=== PATIENT | female | born 1945 | race Caucasian/White ===

== ENCOUNTER → 2024-06-04 | Outpatient (CLI) | payer MEDICARE, BC, SELFPAY ==
--- NOTE | 2024-06-04 14:00 | XR_ITS ---
Examination: Breast ultrasound, unilateral, right complete Date and time of exam: June 04, 2024 1408 hours INDICATIONS: Bilateral breast sonography December 08, 2023 8:00 oval mass 6 mm right breast Technique: Real-time meek scale ultrasonographic imaging performed right breast including all 4 quadrants as well as nipple retroareolar and axillary region. Findings: 8:00 nodule circumscribed 6 x 3 x 5 mm IMPRESSION: BI-RADS Category 2: Benign findings
== END | disposition home or self-care (01) ==
LOC: CDIM 13:46
PROVIDERS: PCP Family Medicine; Referring Provider Internal Medicine Hematology & Oncology; Visit Provider Internal Medicine Hematology & Oncology
DX: N63.13 Unspecified lump in the right breast, lower outer quadrant (principal); C50.112 Malignant neoplasm of central portion of left female breast
CPT/HCPCS: 76641

== ENCOUNTER → 2024-12-06 | Outpatient (CLI) | payer MEDICARE, BC, SELFPAY ==
--- NOTE | 2024-12-06 08:45 | XR_ITS ---
Examination: Screening digital mammography, bilateral Computer aided detection 3-D breast Tomosynthesis, bilateral Date and time of exam: December 06, 2024 0824 hours Compared to mammograms dating to 2015 Indication: Screening Technique: Nonmagnified MLO, CC views of the breasts to been obtained, reconstructed from 3-D Tomosynthesis images. R2 computer aided detection program utilized for evaluation of suspicious masses and/or abnormal calcifications. 3-D Tomosynthesis images obtained. Findings: Scattered areas of fibroglandular density. 3 mm nodule lobular margins upper outer right breast Stable scar formation left breast consistent with patient's history treated left breast cancer Impression: BI-RADS Category 0: Incomplete: Need additional imaging evaluation Recommend follow-up spot tomographic views of 3 mm nodule upper outer right breast as well as right breast sonography to complete the workup.
[2024-12-06 09:15] LABS: Basophils # (Auto) 0.1 Thou/mm3 (0.0-0.2); Basophils % (Auto) 1 % (0-2.5); Eosinophils # (Auto) 0.2 Thou/mm3 (0.0-0.5); Eosinophils % (Auto) 4 % (0-10); Hematocrit 44.8 % (36.0-46.0); Hemoglobin 14.2 g/dL (12.0-16.0); Immature Granulocytes % (Auto) 0 % (0-0); Immature Granulocytes Auto 0.02 Thou/mm3 (0.00-0.00); Lymphocytes % (Auto) 17 % (10-50); Mean Corpuscular HGB Conc 31.7 g/dl (31.0-37.0); Mean Corpuscular Hemoglobin 30.4 pg (25.0-35.0); Mean Corpuscular Volume 96 fL (80-100); Monocytes # (Auto) 0.5 Thou/mm3 (0.0-0.8); Monocytes % (Auto) 8 % (0-12); Neutrophils % (Auto) 70 % (37-80); Nucleated Red Blood Cell % 0 /100 WBC (0); Platelet Count 160 Thou/mm3 (140-440); RDW Standard Deviation 50.9 fL (36.4-46.3); Red Blood Count 4.67 Miln/mm3 (4.00-5.20); White Blood Count 5.7 Thou/mm3 (3.6-11.0)
[2024-12-06 09:37] LABS: Alanine Aminotransferase 11 U/L (10-49); Albumin, Serum 4.2 gm/dL (3.4-4.8); Albumin/Globulin Ratio 1.8 (1.2-2.2); Alkaline Phosphatase 81 U/L (46-116); Anion Gap 7 (7-16); Aspartate Amino Transferase 19 U/L (0-34); BUN/Creatinine Ratio 20 Ratio (12-20); Bilirubin,Total 1.2 mg/dL (0.3-1.2); Blood Urea Nitrogen 18 mg/dL (9-23); Calcium 9.4 mg/dL (8.3-10.6); Calcium (Corrected) 9.4 mg/dL (8.5-10.1); Carbon Dioxide 32.3 mMol/L (20.0-31.0); Chloride 108 mMol/L (98-107); Creatinine (Component) 0.9 mg/dL (0.6-1.3); Globulin 2.4 gm/dL (2.3-3.5); Glucose 111 mg/dL (74-106); Osmolality,Calculated 295 (275-295); Potassium 4.1 mMol/L (3.4-5.1); Sodium 147 mMol/L (136-145); Total Protein 6.6 gm/dL (5.7-8.2); eGFR > 60 See Note
== END | disposition home or self-care (01) ==
LOC: CDIM 08:16 → COPL 08:33 → SCTO 08:33
PROVIDERS: Referring Provider Internal Medicine Hematology & Oncology; Visit Provider Radiology Diagnostic Radiology
DX: R92.8 Other abnormal and inconclusive findings on diagnostic imaging of breast (principal); C50.112 Malignant neoplasm of central portion of left female breast
CPT/HCPCS: 36415; 77063; 77067; 80053; 85025

== ENCOUNTER 2024-12-18 10:38 | Outpatient (RCR) | payer MEDICARE, BC, SELFPAY | END 2024-12-23 23:59 | disposition home or self-care (01) | LOC: SCTC 10:38 | PROVIDERS: PCP Family Medicine; Referring Provider Nurse Practitioner Family; Visit Provider Nurse Practitioner Family | DX: C50.412 Malignant neoplasm of upper-outer quadrant of left female breast (principal); Z17.0 Estrogen receptor positive status [ER+]; Z17.21 Progesterone receptor positive status; Z17.32 Human epidermal growth factor receptor 2 negative status; M25.50 Pain in unspecified joint; R53.83 Other fatigue; M85.80 Other specified disorders of bone density and structure, unspecified site; Z90.12 Acquired absence of left breast and nipple; Z92.21 Personal history of antineoplastic chemotherapy | CPT/HCPCS: 99212; G0463 ==

== ENCOUNTER → 2025-01-15 | Outpatient (CLI) | payer MEDICARE, BC, SELFPAY ==
--- NOTE | 2025-01-15 13:00 | XR_ITS ---
Examination: Breast ultrasound, unilateral, right Date and time of exam: January 15, 2025 1302 hours INDICATIONS: Personal history left breast cancer lumpectomy 2017, strong family history breast cancer, sister, mammogram 04/07/2025 3 mm nodule upper outer right breast Technique: Real-time meek scale ultrasonographic imaging performed right breast including all 4 quadrants as well as nipple retroareolar and axillary region. Findings: 6:00 calcification 4 x 5 mm with shadowing Dilated retroareolar ducts Impression: BI-RADS Category 3: Probably benign findings One additional 6 month right breast sonogram follow-up recommended
--- NOTE | 2025-01-15 13:45 | XR_ITS ---
Examination: Diagnostic digital mammography, unilateral, right Computer aided detection 3-D breast Tomosynthesis, unilateral Date and time of exam: January 15, 2025 1311 hours INDICATIONS: Mammogram December 06, 2024 3 mm nodule upper outer right breast Technique: Nonmagnified MLO, CC views of the right breast have been obtained, reconstructed from 3-D Tomosynthesis images. R2 computer aided detection program utilized for evaluation of suspicious masses and/or abnormal calcifications. 3-D Tomosynthesis images obtained. Findings: Scattered areas of fibroglandular density Probably benign circumscribed nodule 4 mm upper outer right breast Impression: BI-RADS category 3: Probably benign findings Recommend 1 additional 6 month right mammogram follow-up to document stability in size of the circumscribed nodule upper outer right breast
--- NOTE | 2025-01-15 14:00 | XR_ITS ---
Examination: Bone densitometry Date and time of exam:January 15, 2025 1338 hours INDICATIONS: Menopause age 50 hysterectomy 2016, family history, mother hip fracture calcium and vitamin D 10 years Technique: Lumbar spine and hip total bone mineralization values of an calculated. Peak reference and age match control results have been displayed. Findings: Lumbar spine total bone mineralization is1.143 gm/cm2. This is 0.9 standard deviations above peak reference. This is 3.5 standard deviations above age-matched controls. Hip total bone mineralization is 0.907 gm/cm2 This is 0.3 standard deviations below peak reference. This is 1.7 standard deviations above age-matched controls Impression: There is normal mineralization based on lumbar spine measurements. There is osteopenia based on hip measurements Lumbar mineralization is decreased 4.6% compared with September 15, 2022 Hip mineralization is decreased 0.7% compared with September 15, 2022
[2025-01-15 15:13] LABS: CA 15-3 6.2 U/mL (<32.4); Carcinoembryonic Antigen 1.0 ng/mL (0.0-5.0)
== END | disposition home or self-care (01) ==
PROVIDERS: PCP Family Medicine; Referring Provider Internal Medicine Hematology & Oncology; Visit Provider Nurse Practitioner Family
DX: R92.331 Mammographic heterogeneous density, right breast (principal); N63.11 Unspecified lump in the right breast, upper outer quadrant; M85.88 Other specified disorders of bone density and structure, other site; C50.112 Malignant neoplasm of central portion of left female breast
CPT/HCPCS: 36415; 76641; 77061; 77065; 77080; 82378; 86300; G0279

== ENCOUNTER 2025-02-10 13:09 | Outpatient (RCR) | payer MEDICARE, BC, SELFPAY | END 2025-02-23 23:59 | disposition home or self-care (01) | LOC: SCTC 13:09 | PROVIDERS: PCP Family Medicine; Referring Provider Family Medicine; Visit Provider Nurse Practitioner Family | DX: Z08 Encounter for follow-up examination after completed treatment for malignant neoplasm (principal); Z85.3 Personal history of malignant neoplasm of breast; Z90.12 Acquired absence of left breast and nipple; Z92.21 Personal history of antineoplastic chemotherapy; R53.83 Other fatigue; M25.50 Pain in unspecified joint; M85.80 Other specified disorders of bone density and structure, unspecified site | CPT/HCPCS: 99212; G0463 ==

== ENCOUNTER 2025-02-21 11:20 | Day surgery (SDC) | payer MEDICARE, BC, SELFPAY ==
[2025-02-20 12:18] VITALS: BMI 40.5
[2025-02-21] VITALS (10 sets, daily range): BP systolic 101–154; BP diastolic 54–95; PULSE 69–87; RESP 15–24; TEMP 36.7–36.9; O2SAT 91–99; BMI 40.7
[2025-02-21] MEDS: SODIUM CHLORIDE 0.9% 500 ML 500 ML 20 ML IV (13:19)
[2025-02-21] MEDS: fentaNYL CIT INJ 50 mCg/ML AMP 2ML (ASD USE ONLY) IVP (13:25)
[2025-02-21] MEDS: MIDAZOLAM INJ 1 MG/ML VIAL 2 ML (ASD USE ONLY) 2 MG IVP (13:25)
== END 2025-02-21 14:50 | disposition home or self-care (01) ==
PROVIDERS: PCP Family Medicine; Referring Provider Specialist; Visit Provider Specialist
PROC: 0DBE8ZX Excision of Large Intestine, Via Natural or Artificial Opening Endoscopic, Diagnostic (ICD-10-PCS; CPT 45380; principal; 2025-02-21 12:15)
DX: Z12.11 Encounter for screening for malignant neoplasm of colon (principal); D12.5 Benign neoplasm of sigmoid colon; K64.9 Unspecified hemorrhoids; K57.30 Diverticulosis of large intestine without perforation or abscess without bleeding
CPT/HCPCS: 45385; A4649; J1200; J2250; J3010; J7999

== ENCOUNTER → 2025-05-01 | Outpatient (CLI) | payer MEDICARE, BC, SELFPAY ==
[2025-05-01 09:10] LABS: Misc Send Out* See Sep Rpt
[2025-05-01 10:49] LABS: Basophils # (Auto) 0.1 Thou/mm3 (0.0-0.2); Basophils % (Auto) 1 % (0-2.5); Eosinophils # (Auto) 0.2 Thou/mm3 (0.0-0.5); Eosinophils % (Auto) 3 % (0-10); Hematocrit 45.1 % (36.0-46.0); Hemoglobin 13.8 g/dL (12.0-16.0); Immature Granulocytes Auto 0.02 Thou/mm3 (0.00-0.00); Lymphocytes # (Auto) 0.9 Thou/mm3 (1.0-4.8); Lymphocytes % (Auto) 15 % (10-50); Mean Corpuscular HGB Conc 30.6 g/dl (31.0-37.0); Mean Corpuscular Hemoglobin 29.6 pg (25.0-35.0); Mean Corpuscular Volume 97 fL (80-100); Monocytes # (Auto) 0.4 Thou/mm3 (0.0-0.8); Monocytes % (Auto) 7 % (0-12); Neutrophils # (Auto) 4.7 Thou/mm3 (1.8-7.7); Neutrophils % (Auto) 75 % (37-80); Nucleated Red Blood Cell # 0.00 Thou/mm3 (0.00-0.00); Nucleated Red Blood Cell % 0 /100 WBC (0); Platelet Count 153 Thou/mm3 (140-440); RDW Standard Deviation 50.5 fL (36.4-46.3); Red Blood Count 4.66 Miln/mm3 (4.00-5.20); White Blood Count 6.3 Thou/mm3 (3.6-11.0)
[2025-05-01 11:00] LABS: Alanine Aminotransferase 8 U/L (10-49); Albumin, Serum 4.4 gm/dL (3.4-4.8); Albumin/Globulin Ratio 1.7 (1.2-2.2); Alkaline Phosphatase 87 U/L (46-116); Anion Gap 5 (7-16); Aspartate Amino Transferase 11 U/L (0-34); BUN/Creatinine Ratio 13 Ratio (12-20); Bilirubin,Total 1.1 mg/dL (0.3-1.2); Blood Urea Nitrogen 10 mg/dL (9-23); Calcium 9.6 mg/dL (8.3-10.6); Calcium (Corrected) 9.6 mg/dL (8.5-10.1); Carbon Dioxide 33.1 mMol/L (20.0-31.0); Chloride 107 mMol/L (98-107); Creatinine (Component) 0.8 mg/dL (0.6-1.3); Globulin 2.6 gm/dL (2.3-3.5); Glucose 122 mg/dL (74-106); Osmolality,Calculated 288 (275-295); Potassium 4.8 mMol/L (3.4-5.1); Sodium 145 mMol/L (136-145); Total Protein 7.0 gm/dL (5.7-8.2); eGFR > 60 See Note
[2025-05-01 11:29] LABS: CA 15-3 8.2 U/mL (<32.4); Carcinoembryonic Antigen 0.8 ng/mL (0.0-5.0)
== END | disposition home or self-care (01) ==
LOC: SCTO 08:37
PROVIDERS: PCP Family Medicine; Referring Provider Nurse Practitioner Family; Visit Provider Nurse Practitioner Family
DX: C50.112 Malignant neoplasm of central portion of left female breast (principal)
CPT/HCPCS: 36415; 80053; 82378; 85025; 86300

== ENCOUNTER 2025-05-13 10:50 | Outpatient (RCR) | payer MEDICARE, BC, SELFPAY ==
--- NOTE | 2025-05-13 12:11 | CTCFLWUP_ITS ---
Patient: KANDICE AMADOR : 1945 Page 2 of 3 FOLLOW UP NOTE DATE OF SERVICE: 05/13/2025 NAME: KANDICE AMADOR ACCOUNT: [id number] : 1945 AGE: 79 INTERVAL HISTORY: Summary I am seeing Ms. Amador for follow-up visit today. Patient is feeling sad being alone during holidays. Patient lost her about 3-1/2 years ago and was to him for 57 years. Patient takes her calcium and vitamin D3. Patient lives alone. Patient's last mammogram reviewed with her. Recommendation was to repeat mammogram in 6 months. Patient have not have dental clearance to start Zometa. Patient will be started on alendronate weekly. Patient has no underlying teeth problems as per her. Last extraction was 1 year ago ONCOLOGY HISTORY:?[facility] ? 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 Unable to tolerate anastrozole, letrozole, tamoxifen. She was not able to afford Aromasin. Malignant neoplasm of central portion of left female breast [ICD10] C50.112 DATE OF DIAGNOSIS: STAGE/TNM: TREATMENT HISTORY: Care?Plan Start?Date Cycle Day Intent DOCEtaxel?75,?CARBOplatin?AUC?6,?Trasutzumab?6?(8?Load) 10/31/2016 1 21 Curative?(adjuvant) Trastuzumab?6?mg/kg? To?Finish?the?Year 03/23/2017 1 21 Palliative?(other) Trastuzumab?6?mg/kg? Maintenance 07/27/2017 1 21 Curative?(adjuvant) Reclast 02/11/2025 1 365 Palliative HISTORY OF PRESENT ILLNESS: Boom Amador is a 79-year-old postmenopausal female with following history. 02/26/2016: Patient had bilateral screening mammograms which showed a suspicious mass lesion of 2 cm at the 1 o'clock position in the left breast as well as a 1.8 cm nodule with lobular margins retroareolar region the right breast. 03/23/2016: Bilateral breast ultrasound was obtained which showed a suspicious solid nodule at 1 o'clock position in the left breast. 09/27/2016: Patient had left breast core needle biopsy. Pathology specimen showed ER positive, IA positive HER-2/law amplified 3+, moderately differentiated infiltrating ductal carcinoma. 10/31/2016: Patient was started on neoadjuvant TCH chemotherapy. Patient had 4 cycles of chemotherapy with TCH. Her last chemo was given on 01/03/2017. 01/23/2017: Patient had duplex scan of the right upper extremity which showed acute appearing thrombus in the right basilic vein. Patient had Chemo-Port placed on that side prior. Patient was placed on Eliquis and she continues to take that medication at this time. 03/03/2017: Patient had left breast partial mastectomy and sentinel lymph node biopsy. Surgical pathology specimen showed a residual 1.7 x 1.5 x 1.2 cm moderately differentiated infiltrating ductal carcinoma. One sentinel lymph node was negative for metastatic disease. It was staged as ypT1 snN0 disease. 03/23/2017: Patient was started back on single agent Herceptin. Patient had 14 Herceptin treatments every 3 weeks. Her last Herceptin was given on 12/22/2017. 03/27/2017: Patient was started on radiation to the left breast which she completed on 05/23/201706/2017: Patient was started on adjuvant letrozole. Patient had significant side effects including the generalized body aches joint pains. Letrozole was discontinued on 10/17/2017. Anastrozole was started on 10/18/2017. It was stopped on 11/08/2017 again secondary to body aches and weakness and fatigue and night sweats. After discontinuing anastrozole she was started on tamoxifen on 11/09/2017 which was continued up to 11/29/2017. Unfortunately she had significant sideeffects from tamoxifen including joint pains hot flashes and nausea. After discontinuing the tamoxifen she was restarted again on anastrozole which she continues to take till today. He continues to have generalized body aches and joint pains with thigh anastrozole. She was recommended to give a try with Aromasin. However due to the cost patient never tried Aromasin. 08/07/2018: Patient is in the clinic today for follow-up. She complains of worsening pains in the joints of both hands. She attributes this to anastrozole. She does not want to take anastrozole at this time. She denies any other complaints. Denies any cough chest pain shortness of breath abdominal pain or leg cramps. 03/18/2019: Left breast mammogram?BI-RADS Category 2: Benign findings. 04/24/2019: Left breast ultrasound?BI-RADS Category 2: Benign findings. 09/27/2019: Bilateral screening mammograms? 12/08/2023: Bilateral breast ultrasound OTHER MEDICAL HISTORY/CONDITIONS: FAMILY HISTORY: ?Clone Family Hx? SOCIAL HISTORY: PHYSICIST CRYOGENICS HISTORY: Vaginal?Bleeding:?0-None MEDICATIONS: 1. alendronate - 70 mg 1 tab weekly 2. Aspirin Low Dose - 81 mg 81 mg Daily 3. Calcium 600 + D(3) - 600 mg(1,500mg) -200 unit 1 tab Twice a Day 4. exemestane - 25 mg 1 tab Daily 5. hydrochlorothiazide - 12.5 mg Daily 6. latanoprost - 7. metoprolol succinate - 25 mg Daily 8. timoloL - 0.5 % 1 As directed?Palabra Meds? Medications Last Reconciled by Sangita Mendez MD on 05/13/2025 ALLERGIES: No Known Drug Allergies REVIEW OF SYSTEMS: A complete 14-point review of systems was performed and is negative except as noted in interval history. PHYSICAL EXAMINATION:?CloneBlock PE? VITAL SIGNS: Temperature?98.4, B/P?174/78, Oxygen?Saturation?93% Weight?255?lbs PAIN: 0 - No pain ECOG Performance Status: 0 - Asymptomatic and fully active GENERAL APPEARANCE: Appears well, in no apparent distress, appropriately interactive. HEENT: Normocephalic, no temporal wasting, normal conjunctiva, no scleral icterus, normal hearing, lips without lesions, neck normal range of motion. CARDIOVASCULAR: Not assessed. PULMONARY: Normal respiratory effort, no respiratory distress or use of accessory muscles, speaking in full sentences, no tachypnea. EXTREMITIES: No pedal edema or cyanosis. SKIN: Normal skin appearance. NEUROLOGIC: Alert and oriented x4. PSHYCHIATRIC: Appropriate affect, mood normal, behavior normal, intact thought and speech. LABORATORY DATA: I have personally reviewed and interpreted each of the patient?s relevant lab tests, abnormal findings are below: Date 01/15/25 05/01/25 ??WHITE?BLOOD?COUNT?(Thou/mm3) ? 6.3 ??RED?BLOOD?COUNT?(Miln/mm3) ? 4.66 ??HEMOGLOBIN?(gm/dl) ? 13.8 ??HEMATOCRIT?(%) ? 45.1 ??PLATELET?COUNT?(Thou/mm3) ? 153 ??NEUTROPHILS?%,?AUTO?(%) ? 75 ??LYMPH?%,?AUTO?(%) ? 15 ??NEUTROPHILS,?AUTO?(Thou/mm3) ? 4.7 ??GLUCOSE,RANDOM?(mg/dL) ? 122?H ??BLOOD?UREA?NITROGEN?(mg/dL) ? 10 ??CREATININE?(mg/dL) ? 0.80 ??SODIUM?(mmol/L) ? 145 ??POTASSIUM?(mmol/L) ? 4.8 ??CHLORIDE?(mmol/L) ? 107 ??CrCl?(CandG)?(ml/min) ? 75.19 ??AST/SGOT?(Unit/L) ? 11 ??ALT/SGPT?(Unit/L) ? 8?L ??ALKALINE?PHOSPHATASE?(Unit/L) ? 87 ??BILIRUBIN,?TOTAL?(mg/dL) ? 1.1 ??PROTEIN?TOTAL?(gm/dl) ? 7.0 ??ALBUMIN,?SERUM?(gm/dl) ? 4.4 ??GLOBULIN?(gm/dl) ? 2.6 ??ALBUMIN/GLOBULIN?RATIO ? 1.7 ??CALCIUM,?SERUM?(mg/dL) ? 9.6 ??CALCIUM?SERUM?(CORRECTED)?(mg/dL) ? 9.6 ??CEA?(O*)?(ng/ml) 1.0 0.8 ASSESSMENT/PLAN:?Amena Chavez Assessment/Plan? Kandice Amador, female, with history of left breast cancer in 2017 treated with partial mastectomy and chemotherapy, presents for follow-up with complaints of fatigue and intermittent joint pain. History of Left Breast Cancer Assessment: Patient has a history of left breast cancer diagnosed in 2017, treated with partial mastectomy and chemotherapy. Unable to tolerate anastrozole, letrozole, and tamoxifen due to severe body aches and joint pain. Patient declined to try exemestane, previously prescribed patient states she did not pick it back up due to high cost patient offered financial resources information patient states that she will not be taking medication she did not feel good while she tried the other medications does not want to try any other similar medications, she understands the risk. Plan: - Repeat right breast diagnostic mammogram in June 2025 - Order Santana blood test - complete CEA CA15-3 cancer tumor marker labs before next visit Osteopenia, 01/15/2025 Continue with calcium twice daily Start Reclast after dental clearance Will start with alendronate and advised to take calcium and vitamin D3 daily Patient is not on any antiendocrine therapy Colorectal Cancer Screening Patient is up-to-date with colonoscopy and was told it is clean ORDERS: Order # Description [id number] 3D Mammogram Screening + Right [id number] MD Follow Up 6 Month [id number] MD Follow Up 6 Month [id number] CBC + Comprehensive Metabolic Panel [id number] Lab Appointment [id number] CBC + Comprehensive Metabolic Panel [id number] Lab Appointment [id number] CBC + Comprehensive Metabolic Panel [id number] Lab Appointment [id number] CBC + Comprehensive Metabolic Panel [id number] Lab Appointment [id number] CBC + Comprehensive Metabolic Panel [id number] Lab Appointment RETURN TO CLINIC: I reviewed the diagnosis, prognosis, and recommended treatment/procedure options with the patient (and/or their legal dermatology sales representative), including the potential benefits, risks, side effects and alternative therapies. We also discussed the option of no treatment and the possibility of clinical trial participation, if applicable. All questions were addressed, and they demonstrated understanding. They provided informed consent to proceed with the proposed plan of care. BILLING AND COMPLIANCE: I reviewed external records from providers outside my specialty as summarized above. I spent a total of 50 minutes on this patient?s care on the day of their visit excluding time spent related to any billed procedures. This time includes time spent with the patient as well as time spent documenting in the medical record, reviewing patients records and tests, obtaining history, placing orders, communicating with other healthcare professionals, counseling the patient, family or caregiver, and/or care coordination for the diagnoses above. Electronically Signed by: Grover Chavez MD T: 12:09 PM CC: LEEANNE Burger, [place]?Ray? PCP: Preston Maldonado Referring: Preston Maldonado This document was completed utilizing speech recognition software. Grammatical errors, random word insertions, pronoun errors, and incomplete sentences are an occasional consequence of this system due to software limitations, ambient noise, and hardware issues. Any formal questions or concerns about the content, text or information contained within the body of this dictation should be directly addressed to the provider for clarification.
== END 2025-05-25 23:59 | disposition home or self-care (01) ==
LOC: SCTC 10:50
PROVIDERS: PCP Family Medicine; Referring Provider Family Medicine; Visit Provider Internal Medicine Hematology & Oncology
DX: Z08 Encounter for follow-up examination after completed treatment for malignant neoplasm (principal); Z85.3 Personal history of malignant neoplasm of breast; Z90.12 Acquired absence of left breast and nipple; R53.83 Other fatigue; M25.50 Pain in unspecified joint; M85.80 Other specified disorders of bone density and structure, unspecified site
CPT/HCPCS: 99212; G0463